=== PATIENT | female | born 1990 | race Hispanic/Latino ===

== ENCOUNTER 2019-12-25 07:25 | Outpatient (CLI) | payer BC, OTHER ==
[2019-12-26 14:45] LABS: SARS-CoV-2 MS2 Positive; SARS-CoV-2 N Gene Negative; SARS-CoV-2 S Gene Negative; SARS-CoV-2 by NAA Not Detected (NotDetected); SARS-CoV-2 orf1ab Negative
== END 2019-12-25 07:26 | disposition home or self-care (01) ==
LOC: LABSCS 07:25
PROVIDERS: ATTEND Obstetrics & Gynecology
DX: Z01.812 Encounter for preprocedural laboratory examination (principal); Z11.59 Encounter for screening for other viral diseases
CPT/HCPCS: 87635; U0003

== ENCOUNTER 2019-12-26 00:31 | Day surgery (SDC) | payer BC, OTHER ==
[2019-12-26] MEDS ORDERED: hydrALAZINE 20 MG/ML VIAL SLOW IVP PRN (01:51)
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
[2019-12-26] MEDS ORDERED: Acetaminophen 500 MG TAB PO SCH (02:45)
[2019-12-26] MEDS ORDERED: Ondansetron ODT 8 MG TAB PO SCH (02:45)
== END 2019-12-26 02:45 | disposition home or self-care (01) ==
LOC: L&D/OP 00:31
PROVIDERS: ATTEND Obstetrics & Gynecology
DX: O47.1 False labor at or after 37 completed weeks of gestation (principal); O48.0 Post-term pregnancy; Z3A.40 40 weeks gestation of pregnancy
CPT/HCPCS: Q0162

== ENCOUNTER 2019-12-26 08:47 | Inpatient (IN) | payer BC, OTHER ==
[2019-12-26] MEDS ORDERED: Methylergonovine 0.2 MG/ML VIAL IM PRN (10:02)
[2019-12-26] MEDS ORDERED: Lidocaine 1% (PF) 30 ML VIAL SC PRN (10:02)
[2019-12-26] MEDS ORDERED: Promethazine HCl 25 MG/ML VIAL IM PRN (10:02)
[2019-12-26] MEDS ORDERED: Misoprostol 200 MCG TAB PR PRN (10:02)
[2019-12-26] MEDS ORDERED: Ondansetron PF 4 MG/2 ML Vial IVP PRN (10:02)
[2019-12-26] MEDS ORDERED: Carboprost 250 MCG/ML AMP IM PRN (10:02)
[2019-12-26] MEDS ORDERED: Acetaminophen 500 MG TAB PO PRN (10:02)
[2019-12-26] MEDS ORDERED: NS / Oxytocin 40 units/1000ml 1,000 ML IV PRN (10:02)
[2019-12-26] MEDS ORDERED: Ibuprofen 800 MG TAB PO PRN (10:02)
[2019-12-26] MEDS ORDERED: hydrALAZINE 20 MG/ML VIAL SLOW IVP PRN (10:02)
[2019-12-26] MEDS ORDERED: NS w/ Oxytocin 10 units 500 ML IV SCH (10:15)
[2019-12-26] MEDS ORDERED: Misoprostol 100 MCG TAB VAG SCH (10:15)
--- NOTE | 2019-12-26 10:19 | HP ---
TIME: Roughly 0958 hours. LOCATION: Labor and Delivery in R [facility]. This is a patient of Dr. Man Gallegos. CHIEF COMPLAINT: Regular contractions at 40 weeks and 3 days. The patient was here last night with similar complaints. HISTORY OF PRESENT ILLNESS: In brief, this is a 29-year-old, G1, P0, at 40 weeks and 3 days, who was seen recently with the same complaint of contractions. She states that she was seen yesterday and was about 1 cm and sent home. She states the contractions have increased and they are now about every 3 minutes and they are painful, but she denies vaginal bleeding or leakage of fluid. She has also stated some decreased movement with contractions, but she denies any trauma, fevers, or any COVID-related complaints. REVIEW OF SYSTEMS: Complete review of systems was done and is otherwise negative unless specified in the HPI. PAST MEDICAL HISTORY: Negative. PAST SURGICAL HISTORY: None. ALLERGIES: NONE. PHYSICAL EXAMINATION: VITAL SIGNS: Her blood pressure is 114/69, pulse is 87, temperature is 98.2, respirations are 20 and nonlabored. GENERAL: On physical exam, she is in no acute distress. ABDOMEN: Gravid and size consistent. PELVIC: Cervix is about 1 to 2 cm dilated, about 70% effaced, -1 station, and there is no gross evidence of rupture. This exam is per the RN, who evaluated the patient in triage. MONITOR: I have evaluated the tracing and there are contractions on tocodynamometer about every 3 to 4 minutes and the baby is category 1. ASSESSMENT: This is a 29-year-old, G1, P0, at 40 weeks and 3 days, who was seen within 24 hours with the same complaint of contractions. She is in the latent phase and is late term. PLAN: 1. Due to her persistent complaint of contractions with an EGA of 40 weeks and 3 days, I recommended to be admitted rather than going home. 2. Pitocin as necessary. 3. We will order her COVID screen if not done yesterday. 4. GBS is negative by report. 5. Pain management p.r.n. CYTOTE ORDERED Job ID: [id number] MTDD
[2019-12-26 10:52] LABS: Hemoglobin 13.4 g/dL (12.0-16.0); Mean Corpuscular HGB CONC 32.4 g/dL (32.0-36.0); Mean Platelet Volume 8.4 fL (7.4-10.4); Platelet Count 301 thou/uL (130-400); RBC Distribution Width 12.9 % (11.5-14.5); Red Blood Cell (RBC) Count 4.07 mill/uL (4.20-5.40); White Blood Cell (WBC) Count 17.9 thou/uL (4.8-10.8)
[2019-12-26 11:34] LABS: Syphilis Antibody Nonreactive (Nonreactive); Syphilis Antibody Index 0.03 S/CO (<1.00 Non-Reactive)
[2019-12-26 11:35] LABS: HBSAg Index 0.19 S/CO (0-0.99); Hep B Surf Ag Non-Reactive S/CO (NonReactive)
[2019-12-26] MEDS ORDERED: Fentanyl 4 mcg/Bup 0.1% Cadd 100 ML ONE ×2 (11:36→19:14)
[2019-12-26] MEDS: Lactated Ringer's 1,000 ML IV SCH ×2 (12:14→15:07)
[2019-12-26 12:45] VITALS: BMI 29.2
--- NOTE | 2019-12-26 14:22 | PDOC.LDPN ---
Labor & Delivery Progress Note - Subjective Subjective: comfortable, painful contractions - Objective Vital signs reviewed and normal: yes General: NAD, resting, breathing through contractions Uterine fundus: non tender SVE: @1306 by RN Dilation: FHT: category 1, variability present [place] contractions every: Irregular Procedures: Epidural ~1200 Plan: continue plan of care, labor augmentation, pitocin for augmentation -: Term intrauterine , in labor SVE: @ 1306 Will continue pitocin for labor augmentation, currently at 6. GBS negative.
--- NOTE | 2019-12-26 16:31 | PDOC.LDPN ---
Labor & Delivery Progress Note - Subjective Subjective: comfortable - Objective Vital signs reviewed and normal: yes General: NAD, resting Uterine fundus: tender to palpation SVE: @ 1500 by RN w/ SROM (clear with thin meconium) Dilation: 6 Effacement: 90% Station: -1 FHT: category 1 Plan: continue plan of care, pitocin for augmentation -: SVE: /-1 @ 1306 SVE: /- @ 1500 Will recheck around 1700. Will continue pitocin for labor augmentation, currently at 6. GBS negative.
[2019-12-26] MEDS ORDERED: Lidocaine 1% (PF) 30 ML VIAL ONE (19:00)
[2019-12-26] MEDS ORDERED: NS / Oxytocin 40 units/1000ml 1,000 ML ONE (19:00)
--- NOTE | 2019-12-26 22:33 | PDOC.BPN ---
- Brief Progress Note Temp 101 I have ordered Amp and Gent I am at bedside with Dr Gabriel I have discussed IAI with the patient, and need to start pushing efforts. Pedi at delivery. We cochran end a gas and placenta at delivery
[2019-12-26] MEDS ORDERED: Gentamicin Sulfate 120 MG in Premix Bag 1 BAG IVPB SCH (22:45)
[2019-12-26] MEDS ORDERED: Ampicillin 2 GM in Sodium Chloride 0.9% 100 ML IVPB SCH (23:59)
--- NOTE | 2019-12-27 01:09 | PDOC.OPDEL ---
OB Operative/Delivery Note Delivery Dr/Surgeon: Nery/Hany Assist: Hany Pre-Delivery Diagnosis: active labor, other (IAI; iniability tp push past +5 station.) Procedure/Post Delivery Dx: operative vaginal delivery (Low Vacuum with mushroom cap, one traction x 40 sec or spo, no pop-off. Uncomplicated vaccum use with delivery.) Anesthesia: local (for repair; 1% without epi) - Findings A Sex: female (Baby "Jimmy") - Additional Findings/Plan Placenta delivered: spontaneous (bell at 0108; mec stained. Baby at 0103) Repaired Obstetrical Laceration: 2nd degree (RX with 2-[address] Gabriel) Estimated blood loss: about 500ml Compilations/Other Findings: Outlet vaccuum applied without issues. No pop off, only one continous traction used to effect uncomplicated delivery of head. Baby vigorous. Gas and Plac sent for Mec stained fluid. Apgars pending but baby vigourous Post delivery plan: routine recovery
[2019-12-27 01:49] LABS: Actual Bicarbonate (HCO3v) 22 mEq/L (22-28); Base Excess -2.6 mEq/L (-2.0 to +3.0); pH (Cord, venous) 7.37 (7.32-7.43)
[2019-12-27 01:51] LABS: Actual Bicarbonate (HCO3a) 20.4 mEq/L (22-28); Base Excess (BEa) -4.2 mEq/L (-2.0 to +3.0)
[2019-12-27] MEDS ORDERED: NS / Oxytocin 40 units/1000ml 1,000 ML IV SCH (03:09)
[2019-12-27] MEDS ORDERED: Benzocaine-Menthol 82.5 ML CAN TOP PRN (03:09)
[2019-12-27] MEDS ORDERED: Milk Of Magnesia 30 ML UDCUP PO PRN (03:09)
[2019-12-27] MEDS ORDERED: hydrALAZINE 20 MG/ML VIAL SLOW IVP PRN (03:09)
[2019-12-27] MEDS ORDERED: Preparation H Ointment 28 GM TUBE PR PRN (03:09)
[2019-12-27] MEDS ORDERED: diphenhydrAMINE 25 MG CAP PO PRN (03:09)
[2019-12-27] MEDS ORDERED: Bisacodyl 10 MG SUPP PR PRN (03:09)
[2019-12-27] MEDS ORDERED: Lanolin Ointment 7 GM TUBE TOP PRN (03:09)
[2019-12-27] MEDS ORDERED: Ondansetron PF 4 MG/2 ML Vial IVP PRN (03:09)
--- NOTE | 2019-12-27 04:15 | PDOC.PP ---
Post Progress Note Post Day #: 0 Subjective: Resting comfortably, pain is well controlled. PO intake tolerated: yes Flatus: yes Ambulation: yes Weight Weight 70.307 kg - Physical Examination General: NAD Cardiovascular: no m/r/g, RRR Respiratory: clear to auscultation bilaterally, non-labored breathing Abdominal: + bowel sounds, lochia, no distention, appropriately TTP Neurological: no gross focal deficits Psychiatric: A&Ox3, normal affect Result Diagrams: 12/26/19 10:34 Additional Labs: Post Labs Blood Type A POSITIVE 12/26/19 11:12 Hep Bs Antigen Non-Reactive S/CO (NonReactive) 12/26/19 10:34 (1) Chorioamnionitis Code(s): O41.1290 - CHORIOAMNIONITIS, UNSP TRIMESTER, NOT APPLICABLE OR UNSP Status: Acute (2) Vacuum-assisted vaginal delivery Code(s): Z37.9 - OUTCOME OF DELIVERY, UNSPECIFIED Status: Acute - Assessment/Plan Term delivered, vacuum-assisted vaginal delivery - Routine pp care. - Ibuprofen scheduled for pain control. Chorioamnionitis - s/p 1 dose of Ampicillin and 1 dose of Gentamicin intrapartum. - 1 more dose of antibiotics . - Will monitor for s/s of infection. GBS negative
[2019-12-27] MEDS: Ibuprofen 800 MG TAB PO SCH ×3 (04:28→20:53)
[2019-12-27] MEDS ORDERED: Gentamicin Sulfate 80 MG in Premix Bag 1 BAG IVPB SCH (06:00)
[2019-12-27] MEDS: Ferrous Sulfate 325 MG TAB PO SCH ×2 (07:51→17:10)
[2019-12-27] MEDS ORDERED: Adacel (T-DAP) 0.5 ML SYRINGE IM ONE (09:00)
[2019-12-27] MEDS: Prenatal Vitamin 1 TAB PO SCH (09:09)
[2019-12-27] MEDS: Docusate Calcium (SURFAK) 240 MG CAP PO SCH ×2 (09:09→20:54)
[2019-12-28] MEDS: Ibuprofen 800 MG TAB PO SCH ×3 (05:13→20:55)
--- NOTE | 2019-12-28 06:33 | PDOC.PP ---
Post Progress Note Post Day #: PPD1 Subjective: Resting, no c/o. Denies F/C. PO intake tolerated: yes Ambulation: yes Vital Signs (12 hours) Temp Pulse Resp BP 12/27/19 23:26 98.5 F 77 14 111/63 12/27/19 20:53 85 14 109/53 L Weight Weight 70.307 kg - Physical Examination General: NAD Respiratory: non-labored breathing Neurological: no gross focal deficits Psychiatric: normal affect Result Diagrams: 12/26/19 10:34 Additional Labs: Post Labs Blood Type A POSITIVE 12/26/19 11:12 Hep Bs Antigen Non-Reactive S/CO (NonReactive) 12/26/19 10:34 - Assessment/Plan Doing well s/p VE. Wants to go home in AM as Baby in NICU for fever w/u. Routine PP care.
[2019-12-28] MEDS: Prenatal Vitamin 1 TAB PO SCH (08:29)
[2019-12-28] MEDS: Docusate Calcium (SURFAK) 240 MG CAP PO SCH ×2 (08:29→20:55)
[2019-12-28] MEDS: Ferrous Sulfate 325 MG TAB PO SCH (09:30)
[2019-12-29] MEDS: Ibuprofen 800 MG TAB PO SCH (06:09)
[2019-12-29 07:51] VITALS: BP 115/61; TEMP 98.3
[2019-12-29] MEDS: Docusate Calcium (SURFAK) 240 MG CAP PO SCH (08:43)
[2019-12-29] MEDS: Prenatal Vitamin 1 TAB PO SCH (08:43)
[2019-12-29] MEDS: Ferrous Sulfate 325 MG TAB PO SCH (08:43)
== END 2019-12-29 12:15 | disposition home or self-care (01) | DRG 807 ==
LOC: L&D/OP 08:47 → L&D 10:05 → 3SW 12-27 04:14
PROVIDERS: ADMIT Obstetrics & Gynecology; ATTEND Obstetrics & Gynecology
PROC: 10E0XZZ Delivery of Products of Conception, External Approach (ICD-10-PCS; principal; 2019-12-26)
DX: O41.1230 Chorioamnionitis, third trimester, not applicable or unspecified (principal); Z37.0 Single live birth; O70.1 Second degree perineal laceration during delivery; Z3A.40 40 weeks gestation of pregnancy; O77.0 Labor and delivery complicated by meconium in amniotic fluid
CPT/HCPCS: 36415; 51702; 82805; 85027; 86780; 86850; 86900; 86901; 87340; 87635; 88307; 99283; 99285; J0290; J1580; J2001; J2405; J2590; J3490; Q0162; U0003